=== PATIENT | male | born 1960 | race Caucasian/White ===

== ENCOUNTER 2025-08-10 10:38 | Emergency (ER) | payer MEDICARE, SELFPAY ==
[2025-08-10 11:04] VITALS: BP 175/97; PULSE 67; RESP 18; TEMP 36.8; O2SAT 99; BMI 23.7
--- NOTE | 2025-08-10 11:04 | CT_ITS ---
WS: [id number] CT HEAD TECHNIQUE: Noncontrast CT of the head obtained from the skullbase to the vertex. CLINICAL INFORMATION: Headache history closed head injury COMPARISON: None. DLP: 1079.[address] scans at [facility] use at least one of these dose optimization techniques: automated exposure control; mA and/or kV adjustment per patient size (includes targeted exams where dose is matched to clinical indication); or iterative reconstruction. FINDINGS: No evidence of intracranial hemorrhage or mass effect. Ventricular system and basal cisterns are patent. Mild small vessel changes with mild parenchymal volume loss. No extra-axial fluid collections. No evidence of mass or mass effect. Normal newton-white differentiation. Paranasal sinuses and mastoid air cells are well aerated. .Normal visualized soft tissues. CT/CT head wo con* [id number] IMPRESSION: 1. No evidence of intracranial hemorrhage or mass effect. 2. No acute intracranial findings.
--- NOTE | 2025-08-10 11:17 | PC.NURSE ---
SEISMOGRAPHER took meds to give to pt, pt states No I don't need an IV I don't need any pain medications, I can always take a tablet leter but it's not needed Dr. Erazo notified and made aware.
[2025-08-10 11:32] VITALS: BP 157/96; PULSE 66; O2SAT 97
--- NOTE | 2025-08-10 11:51 | ED_ITS ---
HPI - Head Injury General: Chief complaint: Head Injury Stated complaint: Head injury 07/20 headache for 3 Weeks Time Seen by Provider: 08/10/25 10:42 History of Present Illness: 65-year-old male presents emergency room present after having a closed head injury 3 weeks ago. 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 No vomiting no gait disturbance. He is not on any blood thinners does not take aspirin regularly. No other injury at the time of the fall. Associated symptoms: Deny neck pain Related Data Home Medications ?Medication ?Instructions ?Recorded ?Confirmed No Known Home Medications 09/18/2308/01 Allergies Allergy/AdvReac Type Severity Reaction Status Date / Time No Known Allergies Allergy Unverified 09/18/23 13:30 Review of Systems Const: Denies: fever(s) or chills Card: Denies: chest pain Resp: Denies: dyspnea GI: Denies: abdominal pain : Denies: dysuria, urinary frequency or urinary urgency Musc: Denies: neck pain or back pain Skin/Breast: Denies: rash PFSH ED PFSH: Medical History (Updated 08/10/25 @ 12:28 by Edward Erazo DO) No active medical problems Surgical History (Updated 09/18/23 @ 13:57 by PAULA Galarza) History of oral surgery Family History (Updated 09/18/23 @ 13:57 by PAULA Galarza) Sister Breast cancer Skin cancer Mother Cancer ovary and skin Denies family history of Hypertension Stroke Social History Smoking and tobacco/nicotine status: never used tobacco/nicotine Second hand smoke exposure: No Alcohol intake: current Alcohol intake frequency: holidays/special occasions only Substance/Drug Use: current Adopted: No Caregiver/support person: No Lives independently: Yes Household members: none Housing: House Marital status: Single Number of children: 5 service: No Current occupational status: unemployed Pets and animals: Yes Pets & animals: cat(s) Do you think of yourself as: Straight/Heterosexual Current gender identity: Male Physical Exam Const: COMMON NORMALS: no acute distress GENERAL APPEARANCE: cooperative and comfortable ORIENTATION/CONSCIOUSNESS: Yes awake, Yes oriented to person, Yes oriented to place and Yes oriented to time HENMT: COMMON NORMALS: normocephalic, atraumatic and hearing grossly normal bilaterally HEAD & SCALP: normocephalic and atraumatic Resp: COMMON NORMALS: normal respiratory effort, No retractions, No use of accessory muscles and clear to auscultation bilaterally AUSCULTATION: clear to auscultation bilaterally Cardio: COMMON NORMALS: regular rate, regular rhythm and No murmurs present (Cardio) RATE: regular rate RHYTHM: regular rhythm GI: COMMON NORMALS: Soft to palpation and No hepatosplenomegaly present AUSCULTATION: Yes normoactive bowel sounds PALPATION: Yes Soft to palpation, No Tenderness to palpation present (GI), No Guarding due to palpation present (GI) and Yes No hepatosplenomegaly present Extremity: COMMON NORMALS: normal to inspection, capillary refill normal, no clubbing, cyanosis or edema, no calf tenderness and no pedal edema Neuro: SENSORIUM/ORIENTATION: Yes oriented to person, Yes oriented to place and Yes oriented to time Skin: COMMON NORMALS: no rashes or lesions noted GENERAL SKIN EXAM: no rashes or lesions noted Course Vital Signs: Vital signs: Vital Signs Temperature 98.2 F 08/10/25 11:04 Pulse Rate 60 08/10/25 12:36 Respiratory Rate 18 08/10/25 11:04 Blood Pressure 131/90 08/10/25 12:36 Pulse Oximetry 98 08/10/25 12:36 Oxygen Delivery Me thod Room Air 08/10/25 11:32 MDM - Head Injury Medcial Decision Making CT head negative. PT has been having headaches intermittnetly. Pt having post concussion headaches. HE declines any treratment prefers to manage with home meds. Medical Records I reviewed the patient's medical records. Lab Data I reviewed the patient's lab results. Radiology Impressions Head CT 08/10/25 11:04 IMPRESSION: 1. No evidence of intracranial hemorrhage or mass effect. 2. No acute intracranial findings. All radiology interpretation(s) finalized by discharge Discharge Plan Discharge Patient Disposition: Home Clinical Impression: Concussion without loss of consciousness Condition: Stable Prescriptions: No Action No Known Home Medications Discharge Orders: Discharge ED (Routine); Ordered 08/10/25 Ordered By: Edward Erazo Discharge Diet: Usual diet Discharge Activity: Increase activity as tolerated Patient Instructions: Concussion/Head Injury - Adult, Concussion (ED), Opioid Safety, Pain Management, Patient Portal & [place] Instructions Activity Restrictions/Additional Instructions: [facility]. It is very important that you follow up as instructed or that you return to the Emergency Department should you have concerns or if your condition changes or worsens in any way. Emergency department visits are focused on emergent conditions, in some cases you may require further evaluation on an outpatient basis. You were seen in the emergency room with complaint of a headache for the last [address] of your head did not show any abnormalities. You likely had a concussion with your original injury is not unusual for patients with concussions to have persistent headaches. You can use Tylenol or ibuprofen if this continues follow-up with your primary care doctor and they can refer for you to a neurologist. (Please note that included in your discharge packet is information concerning opioid safety and pain management. This information is given to all patients were discharged from the ER regardless of their discharge diagnosis or the medicines they usually take or are prescribed.) Print Language: Icelandic Coding Level of Care Code ED Foundation Dr[employer] Operator Helper for Josephine Campos
[2025-08-10 12:36] VITALS: BP 131/90; PULSE 60; O2SAT 98
== END 2025-08-10 12:36 | disposition home or self-care (01) ==
PROVIDERS: Emergency Provider Family Medicine
DX: S06.0X0A Concussion without loss of consciousness, initial encounter (principal); W19.XXXA Unspecified fall, initial encounter
CPT/HCPCS: 70450; 99284